=== PATIENT | female | born 1970 | race Caucasian/White ===

== ENCOUNTER 2016-09-06 03:11 | Inpatient (IN) ==
[2016-09-06] MEDS ORDERED: KETOROLAC 30 MG/ML INJECTION IVP ONE (03:24)
[2016-09-06] MEDS ORDERED: DiphenhydrAMINE 50 MG/ML INJECTION IVP ONE (03:24)
[2016-09-06] MEDS ORDERED: HYDROMORPHONE 2 MG/ML INJECTION IVP ONE (03:24)
[2016-09-06] MEDS ORDERED: METHYLPREDNISOLONE SOD SUCC 125mg/2ml INJECTION IVP ONE (03:25)
[2016-09-06] MEDS: SALINE FLUSH 10ml SYRINGE IVF PRN ×2 (04:06→04:20)
--- NOTE | 2016-09-06 04:10 | Emergency Department Report ---
Skin/Abscess/FB HPI - General Chief complaint: Skin/Abscess/Foreign Body Stated complaint: Body rash Time Seen by Provider: 09/06/16 03:13 Source: patient Mode of arrival: ambulatory Limitations: no limitations - History of Present Illness HPI narrative: 11 days ago the patient had some exposure to topical irritant, was diagnosed on August 27 as atopic dermatitis, with possible bacterial over infection. Patient was given doxycycline and prednisone 20 mg, and instructed to follow-up with her primary care physician in the next week. Patient saw Dr. Xiong days ago, was thought to be worsening, started on clindamycin 3 mg 4 times daily, and prednisone 50 mg twice daily. The reddened area on the bilateral medial knees and thighs were outlined. Patient feels as though she is worsening, the redness has spread, and her pain in induration has worsened as well. MD complaint: rash Onset (ago): day(s) - Related Data Home Medications Medication Instructions Recorded Confirmed Furosemide [Lasix] 40 mg PO BID #0 tab 05/14/16 08/27/16 Levothyroxine Sodium 75 mcg PO ACB #0 tab 05/14/16 08/27/16 Lisinopril 20 mg PO DAILY #0 tab 05/14/16 08/27/16 DiphenhydrAMINE [Benadryl] 25 mg PO Q4H PRN 08/27/16 08/27/16 Previous Rx's Medication Instructions Recorded Doxycycline [Vibramycin] 100 mg PO BID #20 tablet 08/27/16 PredniSONE [Deltasone] 20 mg PO WB #15 tab 08/27/16 Allergies Allergy/AdvReac Type Severity Reaction Status Date / Time Penicillins Allergy Unknown Difficulty Verified 08/27/16 12:02 Breathing Sulfa (Sulfonamide Allergy Unknown Hives Verified 08/27/16 12:02 Antibiotics) Review of Systems All systems: reviewed and negative except as stated Integumentary: Reports: erythema, rash PFSH Patient Stated Medical History Hypertension Yes Shingles Yes - Social History Smoking status: Never smoker Physical Exam - Limitations Limitations: no limitations - General General appearance: alert - Normal Exams: Head:: Normocephalic without trauma Eyes:: Pupils are PERRLA w/ EOMI, No scleral icterus, irritation, or foreign bodies noted ENMT:: No facial trauma, nasal exudates, pharyngeal erythema, or exudates are noted Neck:: Full range of motion, without adenopathy, JVD, bruits or thyromegaly Chest/Respirations:: Clear all zamora, with good airflow, and symmetry bilaterally Cardiovascular:: Regular rate and rhythm, without murmur or gallop, Pulses 2+ all extremities, capillary refill, <2 seconds all extremities Abdomen:: Bowel sounds positive, soft, non-tender, non-distended, no hepatosplenomegaly, masses or bruits noted Lymphatic:: No lymphadenopathy, or lymphedema noted Musculoskeletal:: No tenderness, or deformity noted, good range of motion, all extremities Neurological:: Patient is alert, and oriented, cranial nerves, motor/sensory/ cerebellar, exams w/o gross deficits, to observation Psychiatric:: Patient exhibits, appropriate attention, emotion and affect - Skin Skin exam: Present: other (bilateral medial thigh and knee redness, induration, and scattered satellite lesions surrounding the left area of induration, as well as small vesicles on the periphery. It is exquisitely tender to palpation over the reddened area.) Course Vital Signs Temperature 97.8 F 09/06/16 03:12 Pulse Rate 78 09/06/16 03:12 Respiratory Rate 14 09/06/16 03:12 Blood Pressure 144/83 H 09/06/16 03:12 Pulse Oximetry 99 09/06/16 03:12 Temperature 97.8 F 09/06/16 03:12 Pulse Rate 78 09/06/16 03:12 Respiratory Rate 14 09/06/16 03:12 Blood Pressure 144/83 H 09/06/16 03:12 Pulse Oximetry 99 09/06/16 03:12 Skin/Abscess/Foreign Body - MDM Narrative Medical decision making narrative: Initial studies show 16,000 white count, Case discussed with Dr. Cameron, we'll admit on vancomycin, inpatient medical for worsened cellulitis with failed outpatient therapy - Lab Data Result diagrams: 09/06/16 03:33 09/06/16 03:33 Lab Results 09/06/16 09/06/16 Range/Units 03:33 03:33 WBC 16.5 H (4.5-11.0) T/MM3 RBC 4.87 (4.00-5.20) M/MM3 Hgb 14.0 (12-16) GM/DL Hct 43.4 (36-46) % MCV 89.1 (80-100) UM3 MCH 28.7 (26-34) UUG MCHC 32.3 (31-37) GM/DL RDW Std Deviation 43.4 (36.9-50.2) FL Plt Count 311 (130-400) T/MM3 MPV 9.7 (9.4-12.4) UM3 Immature Gran % (Auto) Not performed Neut % (Auto) Not performed Lymph % (Auto) Not performed [place] % (Auto) Not performed Eos % (Auto) Not performed Baso % (Auto) Not performed Neut # Not performed Lymph # Not performed [place] # Not performed Eos # Not performed Baso # Not performed Abs Immat Gran (auto) Not performed Neutrophils % (Manual) 76.0 H (33-66) % Lymphocytes % (Manual) 14.0 L (23-45) % Monocytes % (Manual) 7.0 (0-9.0) % Eosinophils % (Manual) 3.0 (0-4) % Neutrophils # (Manual) 12.5 H (1.8-7.7) T/MM3 Lymphocytes # (Manual) 2.3 (1-4.8) T/MM3 Monocytes # (Manual) 1.2 H (0-0.8) T/MM3 Eosinophils # (Manual) 0.5 (0-0.5) T/MM3 RBC Morph Comment Normal Turbidity < 20 (0-20) Sodium 138 (134-144) MEQ/L Potassium 4.1 (3.6-5) MEQ/L Chloride 103 (98-107) MEQ/L Carbon Dioxide 29 (22-30) MEQ/L Anion Gap 6 (5-15) MEQ/L BUN 20.0 H (7-17) MG/DL Creatinine 0.8 (0.7-1.2) MG/DL GFR Calculation 77 BUN/Creatinine Ratio 25 (6-26) RATIO Glucose 155 H (65-110) MG/DL Calculated Osmolality 272 (261-280) MOSM/KG Calcium 9.7 (8.4-10.2) MG/DL Total Bilirubin 0.50 (0.20-1.30) MG/DL Conjugated Bilirubin 0.00 (0.00-0.30) MG/DL Unconjugated Bilirubin 0.30 (0.00-11.10) MG/DL Icterus Index < 2 (0-7) AST 21 (14-36) U/L ALT 45 (9-52) U/L Alkaline Phosphatase 117 (38-126) U/L Total Protein 6.7 (6.3-8.2) G/DL Albumin 4.4 (3.5-5.0) G/DL Globulin 2.3 L (2.4-3.6) G/DL Albumin/Globulin Ratio 1.9 (1.1-2.2) RATIO Plasma Lactate 1.2 (0.6-2.2) MMOL/L Specimen Hemolysis < 15 (0-25) Disposition Clinical Impression: Cellulitis of thigh Disposition: 02 To [facility] – [place] Acute Care Condition: Improved Prescriptions: No Action Furosemide [Lasix] 40 mg PO BID #0 tab PredniSONE [Deltasone] 20 mg PO WB #15 tab Lisinopril 20 mg PO DAILY #0 tab Levothyroxine Sodium 75 mcg PO ACB #0 tab DiphenhydrAMINE [Benadryl] 25 mg PO Q4H PRN PRN Reason: Prn Orders Doxycycline [Vibramycin] 100 mg PO BID #20 tablet Referrals: Suellen Xiong MD [Family Provider] - - Seen By: physician
[2016-09-06] MEDS ORDERED: ACETAMINOPHEN 325 MG TABLET PO PRN (04:37)
[2016-09-06] MEDS ORDERED: HYDROMORPHONE 2 MG/ML INJECTION IVP PRN (04:37)
[2016-09-06] MEDS ORDERED: ONDANSETRON 4 MG/2 ML INJECTION IVP PRN (04:37)
--- NOTE | 2016-09-06 05:15 | History & Physical Report ---
<Sae Cameron - Last Filed: 09/06/16 05:12> History of Present Illness Date: 09/06/16 Chief complaint: both legs hurt HPI: This is a 45 y/o female who has a history of HTN, Hypothyroidism noted about 11 days ago pain and swelling to her medial knees bilaterally. The patient presented to the ED about one week ago and was started on low dose prednisone and doxy. The patient presented to her PCP this past Sunday and her symptoms were worse with swelling to the right side of her face and eye. The patient had worsening erythema. The patient was started on prednisone 50 BID and changed to clinida. The patient's symptoms have worsened today with increase erythema. The patient presents to the ED and workup is otherwise benign. The patient had the expected hyperglycemia and leukocytosis from the steroids. The patient has sig erythema and pain and will be admitted for IV vancomycin and solumedrol. Review of Systems Review of systems: no headache, no change in vision, eye swelling and right side facial swelling as noted above. chills but no fever or sweats. sx of both legs are worsening. no chest pain. occasional cough, no congestion, mild nausea without emesis. no othe areas of skin rashes appreciated. no focal neuro complaints. 10 point ROS negative otherwise., - Integumentary/Breasts Integumentary: Present: erythema, rash PFSH Patient Stated Medical History Heart Murmur Yes Hypertension Yes Cellulitis Yes: CURRENT Shingles Yes Other Reproductive Yes: MENOPAUSE Medical History Updates: HTN, shingles, hypothyroid Surgical History: c section, appendectomy, t and a - Social History Smoking status: Never smoker Substance use type: does not use Alcohol intake frequency: does not drink Housing: house Household members: spouse service: No Current occupational status: employed Current occupation: runs a [employer] Current occupational exposures/hazards: No Does patient use chewing tobacco?: No Current residence: Apartment/Private Home Medications Home Medications Medication Instructions Recorded Confirmed Type Furosemide [Lasix] 40 mg PO BID #0 tab 05/14/16 09/06/16 History Levothyroxine Sodium 75 mcg PO ACB #0 tab 05/14/16 09/06/16 History Lisinopril 20 mg PO DAILY #0 tab 05/14/16 09/06/16 History DiphenhydrAMINE [Benadryl] 25 mg PO Q4H PRN 08/27/16 09/06/16 History Clindamycin [Cleocin] 600 mg PO QID 09/06/16 09/06/16 History PredniSONE [Deltasone] 50 mg PO BID 09/06/16 09/06/16 History Allergies Allergy/AdvReac Type Severity Reaction Status Date / Time Penicillins Allergy Unknown Difficulty Verified 08/27/16 12:02 Breathing Sulfa (Sulfonamide Allergy Unknown Hives Verified 08/27/16 12:02 Antibiotics) Exam Vital Signs: Temperature 95.9 F L 09/06/16 04:37 Pulse Rate 61 09/06/16 04:37 Respiratory Rate 16 09/06/16 04:37 Blood Pressure 140/82 H 09/06/16 04:37 Pulse Oximetry 97 09/06/16 04:37 Oxygen Delivery Method Room Air Telemetry Rhythm: Sinus Rhythm Height: 1.85 m Weight: 128.8 kg - Constitutional Present: mild distress, well nourished, well developed, morbidly obese, cooperative - Routine HEENT Exam Head: Present: normocephalic, atraumatic Eye: Present: EOMI, conjunctivae pink. Absent: conjunctival icterus, scleral injection, periorbital ecchymosis, periorbital swelling, periorbital tenderness , nystagmus ENT: Present: mucous membranes moist - Routine Neck Exam Present: supple, full ROM - Routine Respiratory Exam Present: CTA bilaterally - Routine Cardiovascular Exam Present: RRR. Absent: murmur, S3 - Routine Abdominal Exam Present: soft Comments: obese, non tender per nursing - Routine Skin Exam Comments: both medial knees with erutyema and tender and warm. - Routine Neurological Exam Present: alert, oriented X3, CN II-XII intact. Absent: motor deficit - Routine Psychiatric Exam Present: normal affect, normal thought process Results - Labs CBC & Chem 7: 09/06/16 03:33 09/06/16 03:33 Assessment and Plan (1) Bilateral lower leg cellulitis Current visit: Yes Status: Acute 09/06/16 05:22 This patient has significant erythema, warmth and tenderness. At this time will cover with vancomycin. Itis quite possible that the patient has a localized inflammatory/allergic process occurring. Will cover with in solumedrol as well. Reassess over the next 24 hours (2) Allergic reaction Current visit: Yes Status: Acute 09/06/16 05:23 as noted above cannot exclude an allergic prpocess. earlier in the disease process the pateint has swelling to her face and eye. continue steroids and follow (3) Hypertension Current visit: Yes Status: Acute 09/06/16 05:23 monitor blood pressure, especially with steroids started. adjust meds as indicated. (4) Hypothyroid Current visit: Yes Status: Acute 09/06/16 05:24 continue symthroid supplementation (5) Hyperglycemia Current visit: Yes Status: Acute 09/06/16 05:24 not unexpected given steroids. continue to monitor. with obesity most likely has insulin resistance and prone to dm 2. (6) Morbid obesity Current visit: Yes Status: Acute 09/06/16 05:25 to be aware of Resuscitation Status: Full Code Hospital Course Summary Disclaimer: The visit summary below is not to be considered part of the above Progress Note. <Chanelle Soria - Last Filed: 09/06/16 14:53> History of Present Illness Date: 09/06/16 [facility] Patient Stated Medical History Heart Murmur Yes Hypertension Yes Cellulitis Yes: CURRENT Other Reproductive Yes: MENOPAUSE Exam Vital Signs: Temperature 96.6 F L 09/06/16 07:25 Pulse Rate 56 L 09/06/16 07:25 Respiratory Rate 16 09/06/16 07:25 Blood Pressure 112/65 09/06/16 07:25 Pulse Oximetry 97 09/06/16 07:25 Oxygen Delivery Method Room Air Height: 1.85 m Weight: 129.1 kg Results - Labs CBC & Chem 7: 09/06/16 03:33 09/06/16 03:33 Assessment and Plan (1) Allergic reaction Current visit: Yes Status: Acute (2) Bilateral lower leg cellulitis Current visit: Yes Status: Acute (3) Hypertension Current visit: Yes Status: Acute (4) Hypothyroid Current visit: Yes Status: Acute (5) Hyperglycemia Current visit: Yes Status: Acute (6) Morbid obesity Current visit: Yes Status: Acute Assessment and Plan: Dr. Cameron's note reviewed. Mrs. Kellogg interviewed and examined. CC: Painful rash HPI: Mrs. Kellogg is a 45-year-old female who developed a rash on the medial aspect of her knees approximately 2 weeks ago which subsequently spread to the left forearm. The rash was painful and itched. Small bumps develop initially followed by burning pain and generalized erythema. Eventually some vesicles appear in the area. She was seen in the emergency room on 08/27 at which time the rash was felt to be consistent with contact dermatitis and she was started on prednisone and doxycycline as a precaution for superimposed cellulitis. Symptoms persisted and worsened with increasing pain and spread of the rash in the same distributions, increasing heat in the area, and onset of some swelling in the right side of her face. She was seen by her primary care physician 2 days ago and started on high-dose prednisone at 50 mg twice a day and clindamycin after being given an injection of 80 mg of Kenalog. Pain has persisted to the point patient is unable to get out of bed independently. There is been some watery drainage from areas of the rash and more swelling. She denies fever but has felt cold and chilled at times. On evaluation in the emergency room last night the rash should spread outside of the area previously marked by Dr. Xiong on 09/06. She is admitted now for IV therapy for stabilization. PH/SH/FH: agree with that recorded above with additions patient's had a previous repair for bladder prolapse. ROS: 10 point review as described by Dr. Cameron with addition the patient feels urine output has decreased despite drinking a lot the past couple of days. EXAM: General-heart rate 56, blood pressure 112/65, temperature 96.6. NAD, alert, fluent speech HEENT-PERRL, EOMI without nystagmus, conjunctiva clear, sclera anicteric, conjugate gaze, facial structures symmetric, oropharynx clear, tongue without thrush, neck supple and without adenopathy Lungs-respirations nonlabored, good airflow, breath sounds clear Cardiac-regular rhythm, S1-S2 Abd-soft, nontender, without mass, bowel sounds present Ext-without edema Skin-large areas of moderate erythema on the medial aspect of the thighs and calves bilaterally extending from the proximal thighs to the mid calves bilaterally, irregular border, has expanded outside previously marked area slightly in some areas, blanches to pressure, no induration, a few scattered vesicles present with in the area of discoloration, no indication of urticaria or necrosis present. There is a smaller area of erythema on the extensor surface of the left forearm measuring approximately 8 x 30 cm with faint erythema and multiple small excoriations are present. There are scattered small papules along the left shoulder, many with excoriations from scratching by patient report, and less frequent papules on the anterior chest. Neuro-cranial nerves 3-12 intact, motor tone/power normal-patient is able to raise each leg off the bed independently. Sensation intact to light touch 4 extremities. Psych-oriented 3, calm, cooperative DATA: White count 16.5, 76% neutrophils, 14% lymphocytes, 3% eosinophils Glucose 155, remainder of chemistries normal A/P: Contact dermatitis, severe Cellulitis Hyperglycemia, steroid-induced Hypertension Bradycardia Morbid obesity Hypothyroidism Continue high-dose steroids as initiated overnight in conjunction with IV antibiotics. Distribution of rash strongly suggests that this is a contact dermatitis with contact transfer from one leg to the other and subsequently to the upper extremity. Will discuss further with Dr. Xiong. Patient reports pain control has improved with high-dose steroids after initial dose and that she has been able to ambulate to the bathroom this morning. Monitor blood sugars on high-dose steroids, H2 neida added for gastric protection. Benadryl added for ongoing pruritus. Continue vancomycin as a precaution. Home medications continued for chronic medical problems. Past records and outpatient records reviewed, laboratory data reviewed, discussed with Dr. Xiong. Hospital Course Summary Disclaimer: The visit summary below is not to be considered part of the above Progress Note. Hospital Course: 09/06/16 14:51 Patient admitted with rash localized to medial legs and left forearm, treatment initiated with high-dose steroids in conjunction with IV antibiotics. Distribution of rash strongly suggests that this is a contact dermatitis with contact transfer from one leg to the other and subsequently to the upper extremity. Will discuss further with Dr. Xiong. Patient reports pain control has improved with high-dose steroids after initial dose and that she has been able to ambulate to the bathroom this morning. Monitor blood sugars on high-dose steroids, H2 neida added for gastric protection. Benadryl added for ongoing pruritus. Continue vancomycin as a precaution. Home medications continued for chronic medical problems.
[2016-09-06] MEDS: NS 1,000 ML IV SCH ×2 (05:23→18:29)
[2016-09-06] MEDS: HYDROCODONE/APAP 5mg/325mg TABLET PO PRN ×3 (05:31→22:09)
[2016-09-06] MEDS: LEVOTHYROXINE 75 MCG TABLET PO SCH (07:14)
[2016-09-06] MEDS: LISINOPRIL 20 MG TABLET PO SCH (08:20)
[2016-09-06] MEDS: METHYLPREDNISOLONE SOD SUCC 125mg/2ml INJECTION IVP SCH ×3 (08:20→22:10)
--- NOTE | 2016-09-06 14:22 | Pharmacy Consult-Antibiotics ---
Pharmacy Consult-Vancomycin - Laboratory Information WBC 16.5 T/MM3 (4.5-11.0) H 09/06/16 03:33 BUN 20.0 MG/DL (7-17) H 09/06/16 03:33 Creatinine 0.8 MG/DL (0.7-1.2) 09/06/16 03:33 - Consult Information 45 y.o. Female admitted with cellulitis to bilateral legs. Vancomycin per pharmacy protocol ordered. goal vanco trough= 15-20 mcg/ml Vancomycin 1 gm IV x 1 dose given at 0422. Vancomycin 1.5 GM IV Q8H ordered. This gives an estimated trough of 15 mcg/ml. Pharmacy will monitor and adjust as needed. Thank you, Anabel Shepherd [facility]
[2016-09-06] MEDS: DiphenhydrAMINE 25 MG CAPSULE PO PRN (22:09)
[2016-09-06] MEDS: FAMOTIDINE 20 MG TABLET PO SCH (22:10)
[2016-09-07] MEDS: METHYLPREDNISOLONE SOD SUCC 125mg/2ml INJECTION IVP SCH ×2 (03:35→08:34)
[2016-09-07] MEDS: NS 1,000 ML IV SCH (04:15)
[2016-09-07 07:48] VITALS: BP 144/87; PULSE 53; RESP 14; TEMP 96.4; O2SAT 99
[2016-09-07] MEDS: LEVOTHYROXINE 75 MCG TABLET PO SCH (08:05)
[2016-09-07] MEDS: LISINOPRIL 20 MG TABLET PO SCH (08:33)
[2016-09-07] MEDS: FAMOTIDINE 20 MG TABLET PO SCH (08:34)
[2016-09-07] MEDS: DiphenhydrAMINE 25 MG CAPSULE PO PRN (08:36)
--- NOTE | 2016-09-07 11:10 | Pharmacy Consult-Antibiotics ---
Pharmacy Consult-Vancomycin - Laboratory Information WBC 18.1 T/MM3 (4.5-11.0) H 09/07/16 06:58 BUN 20.0 MG/DL (7-17) H 09/07/16 06:58 Creatinine 0.7 MG/DL (0.7-1.2) 09/07/16 06:58 Vancomycin Trough 14.72 UG/ML (15-20) L 09/07/16 06:58 - Consult Information Vancomycin trough of 14.7 mcg/ml is acceptable. Will continue vancomycin 1.5gm IV q8h. Thank you.
--- NOTE | 2016-09-07 11:33 | Discharge Instructions ---
Discharge Plan - Med Rec/Dispo Referrals/Follow Up: Suellen Xiong MD [Family Provider] - (2:45pm tomorrow-09/08) Nimisha Instructions: Cellulitis (GEN), Contact Dermatitis (GEN), Poison [place] ( GEN) Prescriptions: New predniSONE [Prednisone] 10 mg PO DAILY #60 tablet Famotidine [Pepcid] 20 mg PO BID #60 tablet Continue Furosemide [Lasix] 40 mg PO BID #0 tab Lisinopril 20 mg PO DAILY #0 tab Levothyroxine Sodium 75 mcg PO ACB #0 tab DiphenhydrAMINE [Benadryl] 25 mg PO Q4H PRN PRN Reason: Prn Orders Changed Clindamycin [Cleocin] 300 mg PO QID #0 PredniSONE [Deltasone] 50 mg PO DAILY #0 Discharge Instructions/Outpatient Orders: Final Provider Discharge Instructions Location: Determined By Patient - Disposition 01 Discharged Home, Self-Care
[2016-09-07] MEDS ORDERED: FUROSEMIDE 40 MG TABLET PO SCH (14:00)
--- NOTE | 2016-09-07 15:16 | Discharge Summary ---
Discharge Information Date of admission: 09/06/16 04:25 Anticipated date of discharge: 09/07/16 Attending Physician: Chanelle Soria MD Primary care physician: Suellen Xiong MD - Discharge Diagnosis (1) Contact dermatitis Qualifiers: Contact dermatitis type: unspecified Status: Acute (2) Allergic reaction Status: Acute (3) Bilateral lower leg cellulitis Status: Suspected (4) Hypertension Qualifiers: Hypertension type: essential hypertension Qualified Code(s): I10 - Essential (primary) hypertension Status: Acute (5) Hypothyroid Qualifiers: Hypothyroidism type: acquired Qualified Code(s): E03.9 - Hypothyroidism, unspecified Status: Acute (6) Hyperglycemia Problem Details: steroid induced Status: Acute (7) Morbid obesity Qualifiers: Obesity type: unspecified obesity type Qualified Code(s): E66.01 - Morbid ( severe) obesity due to excess calories Status: Chronic - Laboratory Labs: Admission white count was 14.5 with differential of 76 segs, 14 lymphocytes, 3 eosinophils, 7 monocytes; chemistries were unremarkable other than minor hyperglycemia. 09/07/16 06:58 09/07/16 06:58 History of Present Illness HPI: This is a 45 y/o female who has a history of HTN, Hypothyroidism noted about 11 days ago pain and swelling to her medial knees bilaterally. The patient presented to the ED about one week ago and was started on low dose prednisone and doxy. The patient presented to her PCP this past Sunday and her symptoms were worse with swelling to the right side of her face and eye. The patient had worsening erythema. The patient was started on prednisone 50 BID and changed to clinida. The patient's symptoms have worsened today with increase erythema. The patient presents to the ED and workup is otherwise benign. The patient had the expected hyperglycemia and leukocytosis from the steroids. The patient has sig erythema and pain and will be admitted for IV vancomycin and solumedrol. Hospital Course This is a general summary of the patient's hospital course. For more details refer to the complete medical record. Hospital course: 09/06/16 14:51 Patient admitted with rash localized to medial legs and left forearm, treatment initiated with high-dose steroids in conjunction with IV antibiotics. Distribution of rash strongly suggests that this is a contact dermatitis with contact transfer from one leg to the other and subsequently to the upper extremity. Will discuss further with Dr. Xiong. Patient reports pain control has improved with high-dose steroids after initial dose and that she has been able to ambulate to the bathroom this morning. Monitor blood sugars on high-dose steroids, H2 neida added for gastric protection. Benadryl added for ongoing pruritus. Continue vancomycin as a precaution. Home medications continued for chronic medical problems. 09/07/16 Pema reports feeling better today and that she was able to ambulate to and from the bathroom without difficulty and can get in and out of bed independently. Pain control has improved. The rash is less painful and is beginning to fade although the distribution of the rash is minimally changed. There is still itching requiring Benadryl frequently. On examination there is diffuse moderately pink discoloration in the previously outlined area in the medial thighs and calves and the previously outlined areas although the rash is receiving peripherally especially proximally. The rash is not is intensely colored as yesterday and is clearly less edematous than it was on admission. There are no new areas of involvement. Area of involvement on the left forearm is minimally changed. Respirations are nonlabored and airflow good, no wheezing is present. Stable for discharge at this time. Converted to prednisone 60 mg daily and clindamycin 300 mg 4 times a day- antibiotics precautionary. She was additionally started on Pepcid 20 mg twice a day during the hospital stay as an adjunct antihistamine and for gastric prophylaxis while on high-dose steroids. Patient is to follow up with Dr. Xiong tomorrow at 2:45 PM for reassessment. >30 minutes spent on patient care and discharge care coordination today on the date of discharge. -- Discharge Plan - Med Rec/Dispo Referrals/Follow Up: Suellen Xiong MD [Family Provider] - (2:45pm tomorrow-09/08 DR. XIONG OFFICE NUMBER [phone]) [facility] Instructions: Contact Dermatitis (GEN), Cellulitis (GEN), Poison [place] ( GEN) Prescriptions: New predniSONE [Prednisone] 10 mg PO DAILY #60 tablet Famotidine [Pepcid] 20 mg PO BID #60 tablet Continue Furosemide [Lasix] 40 mg PO BID #0 tab Lisinopril 20 mg PO DAILY #0 tab Levothyroxine Sodium 75 mcg PO ACB #0 tab DiphenhydrAMINE [Benadryl] 25 mg PO Q4H PRN PRN Reason: Prn Orders Changed Clindamycin [Cleocin] 300 mg PO QID #0 PredniSONE [Deltasone] 50 mg PO DAILY #0 Discharge Instructions/Outpatient Orders: Final Provider Discharge Instructions Location: Determined By Patient - Disposition 01 Discharged Home, Self-Care
== END 2016-09-07 13:22 | disposition home or self-care (01) | DRG 607 ==
LOC: ED 03:11 → MED 04:24
PROVIDERS: ADMIT Emergency Medicine; ATTEND Internal Medicine